=== PATIENT | female | born 1990 | race Two or more races ===

== ENCOUNTER 2020-05-19 14:23 | Emergency (ER) | payer OTHER ==
[~2020-05-19] VITALS: Ht 162.6 cm; Wt 67.6 kg
[2020-05-19] MEDS ORDERED: TUSNEL LIQUID178 ML PO (18:00)
[2020-05-19] MEDS ORDERED: ZITHROMAX500 MG PO (18:00)
[2020-05-19] MEDS ORDERED: ALBUTEROL2.5 MG/3 M IH (18:00)
== END 2020-05-19 18:59 | disposition home or self-care (01) ==
LOC: ER 14:23
DX: J45.909 Unspecified asthma, uncomplicated (principal); J06.9 Acute upper respiratory infection, unspecified; Z20.822 Contact with and (suspected) exposure to COVID-19